=== PATIENT | female | born 1960 | race Caucasian/White ===

== ENCOUNTER 2016-07-06 14:56 | Outpatient (CLI) | payer OTHER | END 2016-07-06 14:57 | disposition home or self-care (01) | DX: D25.9 Leiomyoma of uterus, unspecified (principal) ==

== ENCOUNTER 2018-05-12 17:07 | Outpatient (CLI) | payer OTHER ==
[2018-05-12 17:30] LABS: BASOPHILS % (AUTO) 0.3 %; EOSINOPHILS # (AUTO) 0.2 10^3/uL (0.0-0.7); HGB - HEMOGLOBIN 15.2 g/dL (12.0-16.0); LYMPHOCYTES # (AUTO) 2.2 10^3/uL (1.5-3.5); LYMPHOCYTES % (AUTO) 19.4 %; MEAN CORPUSCULAR HEMOGLOBIN 29.5 pg (27.0-31.0); MEAN CORPUSCULAR HGB CONC 33.4 g/dL (32.0-36.0); MEAN CORPUSCULAR VOLUME 88.4 fL (81.0-99.0); MEAN PLATELET VOLUME 9.5 fL (7.9-10.8); MONOCYTES # (AUTO) 1.1 10^3/uL (0.0-1.0); MONOCYTES % (AUTO) 9.2 %; NEUTROPHILS # (AUTO) 7.9 10^3/uL (1.5-6.6); NEUTROPHILS % (AUTO) 69.1 %; PLT - PLATELET COUNT 262 10^3/uL (130-450); RED BLOOD COUNT 5.17 10^6/uL (4.20-5.40); RED CELL DISTRIBUTION WIDTH 14.8 % (12.0-15.0); WHITE BLOOD COUNT 11.4 x10^3/uL (4.8-10.8)
--- NOTE | 2018-05-13 04:49 | XRAY Report ---
Reason: DYSPNEA Procedure Date: 05/12/2018 Accession Number: [id number] / [id number] Procedure: XR - Chest 2 View X-Ray CPT Code: 90761 FULL RESULT: EXAM: CHEST RADIOGRAPHY EXAM DATE: 05/12/2018 05:51 PM. CLINICAL HISTORY: Dyspnea, increasing shortness of breath. Chronic cough. COMPARISON: None. TECHNIQUE: 2 views. FINDINGS: Lungs/Pleura: Lung volumes are small. There is diffuse pulmonary interstitial prominence. Additional streaky bibasilar opacity. No pneumothorax. No significant effusion. Mediastinum: Heart and mediastinal contours are unremarkable. Other: None. IMPRESSION: Decreased lung volumes. Interstitial prominence as well as streaky bibasilar opacities. Differential diagnosis includes fibrotic interstitial lung disease versus atypical pneumonia. Further assessment could be considered with a high resolution CT of the chest. RADIA
== END 2018-05-12 17:08 | disposition home or self-care (01) ==
LOC: DI 17:07
PROVIDERS: ATTEND Physician Assistant Medical
DX: R06.00 Dyspnea, unspecified (principal); R91.8 Other nonspecific abnormal finding of lung field
CPT/HCPCS: 71046; 85025; 85379; 85651

== ENCOUNTER 2018-05-12 18:42 | Emergency (ER) | payer OTHER ==
[2018-05-12] MEDS ORDERED: IOPAMIDOL-300 100 ML VIAL ONE (21:13)
[2018-05-12 21:39] LABS: ALBUMIN 3.4 g/dL (3.2-5.5); ALBUMIN/GLOBULIN RATIO 0.9 (1.0-2.2); BILIRUBIN,TOTAL 0.5 mg/dL (0.2-1.0); CALCIUM 8.3 mg/dL (8.5-10.3); CREATININE 0.8 mg/dL (0.4-1.0)
[2018-05-12] MEDS ORDERED: IOPAMIDOL-300 100 ML VIAL IVP ONE (22:11)
--- NOTE | 2018-05-12 22:17 | ED Physician Documentation ---
PD HPI DYSPNEA - Stated complaint Stated Complaint: POSS BLOOD CLOT/SENT BY - Chief complaint Chief Complaint: Resp - Additional information Additional information: 58-year-old female presents the emergency department for evaluation of shortness of breath for the past several weeks. The patient has been having increased dyspnea on exertion and pain with deep inspiration. The patient was seen by primary care today and a outpatient d-dimer was done which came back elevated and the patient was referred to the emergency department for a CT angiogram to rule out a blood clot. The patient denied any fevers or chills. The patient denies chest pain or radiation of symptoms. The patient denies peripheral edema. No triggering factors. No relieving factors. 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 - Present Medications Home Medications: Ambulatory Orders Medication Instructions Recorded Confirmed Doxycycline Hyclate 100 mg PO BID #20 capsule 05/12/18 predniSONE [Prednisone] 60 mg PO DAILY #20 tablet 05/12/18 - Allergies Allergies/Adverse Reactions: Allergies Allergy/AdvReac Type Severity Reaction Status Date / Time albuterol Allergy Rash Verified 05/12/18 19:06 - Social History Does the pt smoke?: No Smoking Status: Never smoker Does the pt drink ETOH?: Yes Does the pt have substance abuse?: No - Immunizations Immunizations are current?: Yes PD ED PE NORMAL - General General: Alert and oriented X 3, No acute distress - HEENT HEENT: Atraumatic, PERRL, EOMI, Ears normal - Neck Neck: Supple, no meningeal sign - Cardiac Cardiac: RRR - Respiratory Respiratory: No respiratory distress, Clear bilaterally - Derm Derm: Normal color - Extremities Extremities: No deformity - Neuro Neuro: Alert and oriented X 3, Normal speech - Psych Psych: Normal mood Results - Vitals Vitals: Vital Signs - 24 hr 05/12/18 05/12/18 05/12/18 19:00 20:40 22:25 Temperature 36.7 C 36.5 C Heart Rate 107 H 107 H 91 Respiratory 16 18 16 Rate Blood Pressure 135/79 H 139/87 H 129/70 O2 Saturation 96 94 93 Oxygen O2 Source Room air - EKG (time done) No standard instances Rhythm: NSR Intervals: Normal [place], QRS normal QRS: Normal Ischemia: Normal ST segments - Labs Labs: Laboratory Tests 05/12/18 05/12/18 05/12/18 21:17 21:17 21:17 Sodium 131 L Potassium 3.8 Chloride 99 L Carbon Dioxide 26 Anion Gap 6.0 BUN 24 H Creatinine 0.8 Estimated GFR (MDRD) 74 L Glucose 111 H Calcium 8.3 L Total Bilirubin 0.5 AST 24 ALT 34 Alkaline Phosphatase 59 Troponin I < 0.04 B-Natriuretic Peptide 11 Total Protein 7.0 Albumin 3.4 Globulin 3.6 Albumin/Globulin Ratio 0.9 L Lipase 27 - Rads (name of study) CTA chest Radiology: Final report received, See rad report (IMPRESSION: 1. No pulmonary emboli. 2. No aortic aneurysm or dissection. 2. Scattered bilateral atelectasis/infiltrate, worst in the bases. ) PD MEDICAL DECISION MAKING - ED course ED course: The patient's workup shows concern for a infectious pneumonia as the source of her dyspnea based on the CT scan. Presently, the patient appears appropriate for a trial of outpatient management. I advised close follow-up with primary care because of her symptoms not improving she may need referral to pulmonology or further workup of her ongoing dyspnea. The patient understands and agrees. I advised returning to the emergency department immediately for any worsening or any concerns Departure - Departure Disposition: 01 Home, Self Care Clinical Impression: Elevated d-dimer Pneumonia Qualifiers: Pneumonia type: due to unspecified organism Laterality: bilateral Lung location: unspecified part of lung Qualified Code(s): J18.9 - Pneumonia, unspecified organism Dyspnea Qualifiers: Dyspnea type: dyspnea on exertion Qualified Code(s): R06.09 - Other forms of dyspnea Condition: Good Instructions: ED Pneumonia Adult Follow-Up: Binta Kirby PA-C [Primary Care Provider] - Within 1 week Prescriptions: Doxycycline Hyclate 100 mg PO BID #20 capsule predniSONE [Prednisone] 60 mg PO DAILY #20 tablet Comments: Please return to the emergency department for worsening symptoms or any concerns
[2018-05-12 22:25] VITALS: BP 129/70
--- NOTE | 2018-05-12 22:43 | CT Report ---
Reason: soa, pe study Procedure Date: 05/12/2018 Accession Number: [id number] / [id number] Procedure: CT - ANGIO CHEST W/WO CPT Code: FULL RESULT: EXAM: CT ANGIOGRAM CHEST EXAM DATE: 05/12/2018 10:13 PM. CLINICAL HISTORY: Shortness of breath. Concern for PE. COMPARISON: None. TECHNIQUE: Routine helical imaging was performed through the chest in the pulmonary arterial phase. IV Contrast: 80 cc of Isovue-300. Reconstructions: Coronal 3-D MIP reconstructions.Sagittal and coronal. In accordance with CT protocol optimization, one or more of the following dose reduction techniques were utilized for this exam: automated exposure control, adjustment of mA and/or KV based on patient size, or use of iterative reconstructive technique. FINDINGS: Pulmonary Arteries: Diagnostic quality: Adequate through the segmental arteries. No evidence for acute or chronic pulmonary emboli. RV/LV is within normal limits. There is no interventricular septal bowing. There is no reflux of contrast material in the IVC. Lungs/Pleura: Scattered bilateral patchy opacities with atelectasis. No consolidation, nodules, or edema. No effusions or pneumothorax. Mediastinum: Normal. No cardiac enlargement or adenopathy. Thoracic Aorta: Unremarkable. Upper Abdomen: Unremarkable. Other: None. IMPRESSION: 1. No pulmonary emboli. 2. No aortic aneurysm or dissection. 2. Scattered bilateral atelectasis/infiltrate, worst in the bases. RADIA
[2018-05-12] MEDS ORDERED: DOXYCYCLINE 100 MG TABLET PO STA (22:47)
[2018-05-12] MEDS ORDERED: predniSONE 20 MG TABLET PO STA (22:47)
== END 2018-05-12 23:34 | disposition home or self-care (01) ==
LOC: ED 18:42
DX: J18.9 Pneumonia, unspecified organism (principal); R79.89 Other specified abnormal findings of blood chemistry; R06.00 Dyspnea, unspecified; R91.8 Other nonspecific abnormal finding of lung field
CPT/HCPCS: 36415; 71046; 71275; 80053; 83690; 83880; 84484; 85025; 85379; 85651; 93005; 99283; 99284; A9270; J7512; Q9967

== ENCOUNTER 2018-05-22 11:42 | Outpatient (CLI) | payer OTHER ==
--- NOTE | 2018-05-22 14:58 | XRAY Report ---
Reason: ATYPICAL PNEUMONIA Procedure Date: 05/22/2018 Accession Number: [id number] / [id number] Procedure: XRN - Chest 2 View X-Ray CPT Code: 56598 FULL RESULT: EXAM: CHEST RADIOGRAPHY EXAM DATE: 05/22/2018 12:02 PM. CLINICAL HISTORY: Atypical pneumonia. COMPARISON: CHEST 2 VIEW 05/12/2018 5:43 PM. CHEST ANGIO 05/12/2018 9:58 PM. TECHNIQUE: 2 views. FINDINGS: Lungs/Pleura: Lateral radiograph is limited by motion, soft tissue overlap and underpenetration. There is mild prominence of interstitial markings, increased compared to 05/12/2018. Within these limitations, no definite lobar consolidation is seen. No sizable pleural effusion no pneumothorax. Mediastinum: Stable mild borderline cardiomegaly and subtle calcifications of the aortic arch. Other: None. IMPRESSION: Limited examination with interval increase in interstitial markings. RADIA
== END 2018-05-22 11:43 | disposition home or self-care (01) ==
LOC: DI.N 11:42
PROVIDERS: ATTEND Physician Assistant Medical
DX: J18.9 Pneumonia, unspecified organism (principal)
CPT/HCPCS: 71046

== ENCOUNTER 2018-05-27 16:04 | Outpatient (CLI) | payer OTHER ==
--- NOTE | 2018-05-27 19:59 | XRAY Report ---
Reason: ATYPICAL PNUEMONIA Procedure Date: 05/27/2018 Accession Number: [id number] / [id number] Procedure: XRN - Chest 2 View X-Ray CPT Code: 23964 FULL RESULT: EXAM: CHEST RADIOGRAPHY EXAM DATE: 05/27/2018 04:19 PM. CLINICAL HISTORY: Atypical pneumonia. Dyspnea. COMPARISON: CHEST 2 VIEW 05/22/2018 12:02 PM. TECHNIQUE: 2 views. FINDINGS: Lungs/Pleura: Hypoinflated lungs with mild atelectasis in the bases, otherwise no focal opacities evident. No pleural effusion. No pneumothorax. Mediastinum: Borderline heart size. Other: No fractures identified. IMPRESSION: Hypoinflation, with mild bibasilar atelectasis. RADIA The call report notification system was initiated by Dr. Nicolas Griffiths at 07:56 PM on 05/27/2018. ADDENDUM: 05/27/18 20:06 The above call report findings were discussed with Binta Kirby by Dr. Nicolas Griffiths at 08:06 PM on 05/27/2018.
== END 2018-05-27 16:05 | disposition home or self-care (01) ==
LOC: DI.N 16:04
PROVIDERS: ATTEND Physician Assistant Medical
DX: J18.9 Pneumonia, unspecified organism (principal)
CPT/HCPCS: 71046

== ENCOUNTER 2019-11-25 10:00 | Outpatient (CLI) | payer OTHER ==
[2019-11-25 11:58] LABS: BASOPHILS % (AUTO) 0.5 %; EOSINOPHILS # (AUTO) 0.2 10^3/uL (0.0-0.7); EOSINOPHILS % (AUTO) 3.1 %; HGB - HEMOGLOBIN 12.9 g/dL (12.0-16.0); LYMPHOCYTES # (AUTO) 1.9 10^3/uL (1.5-3.5); LYMPHOCYTES % (AUTO) 24.6 %; MEAN CORPUSCULAR HEMOGLOBIN 28.3 pg (27.0-31.0); MEAN CORPUSCULAR HGB CONC 29.7 g/dL (32.0-36.0); MEAN CORPUSCULAR VOLUME 95.4 fL (81.0-99.0); MEAN PLATELET VOLUME 12.2 fL (7.9-10.8); MONOCYTES # (AUTO) 0.7 10^3/uL (0.0-1.0); MONOCYTES % (AUTO) 9.3 %; NEUTROPHILS # (AUTO) 4.9 10^3/uL (1.5-6.6); PLT - PLATELET COUNT 329 10^3/uL (130-450); RED BLOOD COUNT 4.56 10^6/uL (4.20-5.40); RED CELL DISTRIBUTION WIDTH 14.1 % (12.0-15.0); WHITE BLOOD COUNT 7.9 x10^3/uL (4.8-10.8)
[2019-11-25 12:09] LABS: ALBUMIN/GLOBULIN RATIO 1.4 (1.0-2.2); BILIRUBIN,TOTAL 0.8 mg/dL (0.2-1.0); CALCIUM 9.1 mg/dL (8.5-10.3); CREATININE 0.6 mg/dL (0.4-1.0); TOTAL PROTEIN 6.8 g/dL (6.7-8.2)
== END 2019-11-25 23:59 | disposition home or self-care (01) ==
LOC: LAB.WCP 10:00
PROVIDERS: ATTEND Nurse Practitioner
DX: R06.02 Shortness of breath (principal); R60.9 Edema, unspecified
CPT/HCPCS: 36415; 80053; 83880; 84443; 85025

== ENCOUNTER 2022-06-03 08:10 | Emergency (ER) | payer OTHER ==
--- NOTE | 2022-06-03 09:27 | ED Physician Documentation ---
PD HPI HEENT - Stated complaint Stated Complaint: NAUSEA, SEVERE DIZZINESS - Chief complaint Chief Complaint: Neuro - History obtained from History obtained from: Patient - History of Present Illness Timing - onset: Yesterday (noted vertiog with getting up from bed yesterday morning. Worse with head movment and improved with holding still. significantly worse this morning and vomiting with any head movement.) Timing - details: Abrupt onset, Still present, Waxing and waning (much worse when getting up from bed today.) Location: Other (denies ear plugging, hypoacusis, nor tinnitus. No visual change. No ataxia (able to use phone okay and did some typing with normal keyboarding).) Worsens: Position Associated symptoms: Rhinorrhea (mild). No: Fever, Congestion, Cough Review of Systems Constitutional: denies: Fever, Chills Eyes: denies: Loss of vision, Photophobia Ears: denies: Loss of hearing, Tinnitus/ringing Nose: denies: Rhinorrhea / runny nose, Congestion, Sinus pressure / pain Throat: denies: Sore throat Respiratory: denies: Cough Skin: denies: Rash, Lesions Neurologic: denies: Focal weakness, Numbness, Altered mental status, Headache, Head injury PD PAST MEDICAL HISTORY - Past Medical History Past Medical History: Yes Cardiovascular: None Respiratory: Other Neuro: None Endocrine/Autoimmune: None Other Past Medical History: pneumatic lung disease - Past Surgical History 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 MO, FRI, Fri06/03/22 06/03/22 [BACTRIM DS 800/160 Prepack 2] dexAMETHasone [Decadron] 4 mg PO DAILY #5 tablet 06/03/22 diazePAM [Valium] 5 mg PO TID PRN #15 tablet 06/03/22 mycophenolate mofetiL 1,500 mg PO BID 06/03/22 06/03/22 [Mycophenolate Mofetil] - Allergies Allergies/Adverse Reactions: Allergies Allergy/AdvReac Type Severity Reaction Status Date / Time albuterol Allergy Rash Verified 06/03/22 08:36 - Social History Does the pt smoke?: No Smoking Status: Never smoker Does the pt drink ETOH?: Yes Does the pt have substance abuse?: No - Immunizations Immunizations are current?: Yes - POLST Patient has POLST: No PD ED PE NORMAL - Vitals Vital signs reviewed: Yes - General General: Alert and oriented X 3 - HEENT HEENT: PERRL, EOMI (nystagmus noted to right gaze. ), Ears normal, Pharynx benign - Neck Neck: Supple, no meningeal sign, No adenopathy - Cardiac Cardiac: RRR, No murmur - Respiratory Respiratory: Clear bilaterally - Abdomen Abdomen: Soft, Non tender, Other (obese) - Derm Derm: Normal color, Warm and dry - Neuro Neuro: Alert and oriented X 3, rolled ham lacer 2-12 intact, No motor deficit, No sensory deficit, Normal speech, Other Eye Opening: Spontaneous Motor: Obeys Commands Verbal: Oriented GCS Score: 15 Results - Vitals Vitals: Vital Signs - 24 hr 06/03/22 06/03/22 06/03/22 08:31 10:37 12:13 Temperature 36.7 C Heart Rate 76 72 70 Respiratory 18 17 16 Rate Blood Pressure 141/96 H 131/74 H 144/79 H O2 Saturation 97 99 100 If not protocol 6 : Oxygen Flow, liters/minute Oxygen O2 Source Nasal cannula - Labs Labs: Laboratory Tests 06/03/22 06/03/22 06/03/22 10:48 10:48 10:48 WBC 10.9 H RBC 5.08 Hgb 14.4 Hct 46.6 MCV 91.7 MCH 28.3 MCHC 30.9 L RDW 13.1 Plt Count 315 MPV 11.5 H Neut # (Auto) 8.9 H Lymph # (Auto) 1.4 L Randolph # (Auto) 0.5 Eos # (Auto) 0.0 Baso # (Auto) 0.0 Absolute Nucleated RBC 0.00 Nucleated RBC % 0.0 ESR 9 Sodium 136 Potassium 4.2 Chloride 101 Carbon Dioxide 28 Anion Gap 7.0 BUN 13 Creatinine 0.6 Estimated GFR (MDRD) 101 Glucose 109 H Calcium 8.8 Magnesium 2.2 Total Bilirubin 0.6 AST 20 ALT 26 Alkaline Phosphatase 56 Total Protein 7.0 Albumin 3.8 Globulin 3.2 Albumin/Globulin Ratio 1.2 Lipase 28 PD Medical Decision Making - ED course Complexity details: re-evaluated patient (much improved head movment with just mild vertigo and no vomting after meds.), considered differential (Seems like peripheral vertigo with typical characteristics. No other neruo symptoms to suggest central cause. basic chemistry panel with normal results. CBC has elevated WBC at 10.7. ESR is normal. ), d/w patient Drug Therapy Requiring Monitoring for Toxicity: given IV diazepam for the vertigo along with Meclizine. She was monitored by nursing to ensure not overly sedated. She remained with good sats and blood pressure. Much improved vertigo symptoms. Departure - Departure Disposition: Home, Self Care Clinical Impression: Acute onset of severe vertigo Vomiting Qualifiers: Vomiting type: unspecified Nausea presence: with nausea Qualified Code(s): R11.2 - Nausea with vomiting, unspecified Condition: Stable Record reviewed to determine appropriate education?: Yes Instructions: ED Vertigo Unspecified Follow-Up: Binta Kirby PA-C [Primary Care Provider] - [facility] [Provider Group] Prescriptions: dexAMETHasone [Decadron] 4 mg PO DAILY #5 tablet Meclizine HCl [Motion Sickness] 25 mg PO Q6H PRN #30 tablet PRN Reason: Vertigo diazePAM [Valium] 5 mg PO TID PRN #15 tablet PRN Reason: Vertigo Comments: This sounds like peripheral vertigo (vertigo caused by a dysfunction of the inner ear ear/balance center). This can be from small calcifications or debris in the fluid that is hitting on the wrong spot. It can also be from inflamm ation or irritation related to allergies or irritants. Sometimes it can be from inflammation of the nerve that goes to the ear. At this point would treat it with the assumption of some inflammatory process in the inner ear. I would suggest dexamethasone and anti-inflammatory daily for the next 5 days. Use meclizine every 6-8 hours if needed for vertigo/dizziness. To that you can add diazepam which is also useful for vertigo every 8 hours or so if needed for vertigo. I would anticipate a trending down and improvement in this. Moves slow and easy over the next several days. Follow-up with your primary care or ENT if not trending better over the next few days and resolved in 3 to 5 days. Return if worse. I sent your prescriptions to [facility] pharmacy. Discharge Date/Time: 06/03/22 12:14
[2022-06-03] MEDS ORDERED: diazePAM INJ 5 MG/ML SYRINGE IVP STA (10:05)
[2022-06-03] MEDS ORDERED: MECLIZINE 12.5 MG TABLET PO STA (10:05)
[2022-06-03] MEDS ORDERED: DEXAMETHASONE 10 MG/ML VIAL IVP STA (10:05)
[2022-06-03] MEDS ORDERED: SODIUM CHLORIDE 0.9% 1,000 ML IV STA (10:40)
[2022-06-03 10:54] LABS: BASOPHILS % (AUTO) 0.2 %; EOSINOPHILS % (AUTO) 0.1 %; HCT - HEMATOCRIT 46.6 % (37.0-47.0); HGB - HEMOGLOBIN 14.4 g/dL (12.0-16.0); LYMPHOCYTES # (AUTO) 1.4 10^3/uL (1.5-3.5); LYMPHOCYTES % (AUTO) 12.6 %; MEAN CORPUSCULAR HEMOGLOBIN 28.3 pg (27.0-31.0); MEAN CORPUSCULAR HGB CONC 30.9 g/dL (32.0-36.0); MEAN CORPUSCULAR VOLUME 91.7 fL (81.0-99.0); MEAN PLATELET VOLUME 11.5 fL (7.9-10.8); MONOCYTES # (AUTO) 0.5 10^3/uL (0.0-1.0); MONOCYTES % (AUTO) 4.6 %; NEUTROPHILS # (AUTO) 8.9 10^3/uL (1.5-6.6); NEUTROPHILS % (AUTO) 82.1 %; PLT - PLATELET COUNT 315 10^3/uL (130-450); RED BLOOD COUNT 5.08 10^6/uL (4.20-5.40); RED CELL DISTRIBUTION WIDTH 13.1 % (12.0-15.0); WHITE BLOOD COUNT 10.9 x10^3/uL (4.8-10.8)
[2022-06-03 11:06] LABS: ALBUMIN 3.8 g/dL (3.2-5.5); ALBUMIN/GLOBULIN RATIO 1.2 (1.0-2.2); BILIRUBIN,TOTAL 0.6 mg/dL (0.2-1.0); CALCIUM 8.8 mg/dL (8.5-10.3); CREATININE 0.6 mg/dL (0.4-1.0); MAGNESIUM 2.2 mg/dL (1.7-2.8); POTASSIUM 4.2 mmol/L (3.5-5.0)
[2022-06-03 12:14] VITALS: BP 144/79
== END 2022-06-03 12:14 | disposition home or self-care (01) ==
LOC: ED 08:10
DX: R42 Dizziness and giddiness (principal); R11.2 Nausea with vomiting, unspecified
CPT/HCPCS: 36415; 80053; 83690; 83735; 85025; 85651; 96374; 99284; A9270

== ENCOUNTER 2022-08-02 07:10 | Outpatient (CLI) | payer OTHER ==
[2022-08-02 12:19] LABS: BASOPHILS % (AUTO) 0.2 %; EOSINOPHILS # (AUTO) 0.1 10^3/uL (0.0-0.7); EOSINOPHILS % (AUTO) 1.6 %; HCT - HEMATOCRIT 46.4 % (37.0-47.0); HGB - HEMOGLOBIN 14.3 g/dL (12.0-16.0); LYMPHOCYTES # (AUTO) 2.3 10^3/uL (1.5-3.5); LYMPHOCYTES % (AUTO) 28.2 %; MEAN CORPUSCULAR HEMOGLOBIN 28.3 pg (27.0-31.0); MEAN CORPUSCULAR HGB CONC 30.8 g/dL (32.0-36.0); MEAN CORPUSCULAR VOLUME 91.7 fL (81.0-99.0); MEAN PLATELET VOLUME 12.4 fL (7.9-10.8); MONOCYTES # (AUTO) 0.7 10^3/uL (0.0-1.0); NEUTROPHILS # (AUTO) 4.9 10^3/uL (1.5-6.6); NEUTROPHILS % (AUTO) 60.6 %; PLT - PLATELET COUNT 319 10^3/uL (130-450); RED BLOOD COUNT 5.06 10^6/uL (4.20-5.40); RED CELL DISTRIBUTION WIDTH 13.4 % (12.0-15.0); WHITE BLOOD COUNT 8.1 x10^3/uL (4.8-10.8)
[2022-08-02 12:32] LABS: ALBUMIN 3.8 g/dL (3.2-5.5); ALBUMIN/GLOBULIN RATIO 1.2 (1.0-2.2); ALKALINE PHOSPHATASE 67 IU/L (42-121); ALT ALANINE AMINOTRANSFERASE 25 IU/L (10-60); AST ASPARTATE AMINOTRANSFERASE 20 IU/L (10-42); BILIRUBIN,TOTAL 0.7 mg/dL (0.2-1.0); BUN - BLOOD UREA NITROGEN 19 mg/dL (6-20); CALCIUM 8.6 mg/dL (8.5-10.3); CARBON DIOXIDE - CO2 24 mmol/L (21-32); CHLORIDE 104 mmol/L (101-111); CHOL/HDL RATIO 4.1 (<4.4); CHOLESTEROL 224 mg/dL; CREATININE 0.6 mg/dL (0.4-1.0); GFR - MDRD 101 (>89); GLUCOSE 101 mg/dL (70-100); HDL CHOLESTEROL 54 mg/dL; LDL CHOLESTEROL,CALCULATED 137 mg/dL; LDL/HDL RATIO 2.5 (<4.4); POTASSIUM 4.4 mmol/L (3.5-5.0); SODIUM 138 mmol/L (135-145); TOTAL PROTEIN 7.1 g/dL (6.7-8.2); TRIGLYCERIDES 167 mg/dL; VLDL CHOLESTEROL 33 mg/dL
[2022-08-02 12:47] LABS: THYROID STIMULATING HORMONE 1.87 uIU/mL (0.34-5.60)
== END 2022-08-02 07:11 | disposition home or self-care (01) ==
LOC: LAB.N 07:10
PROVIDERS: ATTEND Internal Medicine
DX: Z00.00 Encounter for general adult medical examination without abnormal findings (principal); J96.11 Chronic respiratory failure with hypoxia; J84.9 Interstitial pulmonary disease, unspecified; Z51.81 Encounter for therapeutic drug level monitoring
CPT/HCPCS: 36415; 80053; 80061; 83721; 84443; 85025

== ENCOUNTER 2022-08-06 08:54 | Outpatient (CLI) | payer OTHER ==
--- NOTE | 2022-08-08 12:18 | Mammography Report ---
BILATERAL DIGITAL SCREENING MAMMOGRAM 3D/2D: 08/06/2022 CLINICAL: Routine screening. Comparison is made to exams dated: 07/15/2016 mammogram - [facility], 02/03/2012 mammogram, 2010 mammogram, and 10/14/2009 mammogram - [facility]. Both breasts are almost entirely fatty (category a/<25% glandular tissue). No significant masses, calcifications, or other findings are seen in either breast. There has been no significant interval change. IMPRESSION: NEGATIVE There is no mammographic evidence of malignancy. A 1 year screening mammogram is recommended. Based on the Tyrer Cuzick model (a risk assessment model) the patients lifetime risk is 3.7% and her 10 year risk is 1.6%. According to the ACR, ACS, and NCCN guidelines, an annual breast MRI exam natalie g with mammogram is recommended if the patients lifetime risk is 20% or greater. This exam was interpreted at Station ID: [id number]. NOTE: For mammograms, a report in lay terms will be sent to the patient. Approximately 15% of breast malignancies will not be visualized mammographically. In the management of a palpable breast mass, a negative mammogram must not discourage biopsy of a clinically suspicious lesion. Electronically Signed By: Conrad dumont/fausto:08/07/2022 17:29:27 letter sent: No_Letter ACR BI-RADS Category 1: Negative 3341F PARENCHYMAL PATTERN: (F) - The breast(s) demonstrate(s) diffuse fatty replacement. BI-RADS CATEGORY: (1) - 1 Mammogram [id number] 1 year screening LATERALITY: (B)
== END 2022-08-06 08:55 | disposition home or self-care (01) ==
LOC: DI.N 08:54
DX: Z12.31 Encounter for screening mammogram for malignant neoplasm of breast (principal)